=== PATIENT | female | born 1975 | race Caucasian/White ===

== ENCOUNTER → 2017-04-11 | Outpatient (CLI) | payer BC | LOC: MC.RAD 08:00 | DX: Z12.31 Encounter for screening mammogram for malignant neoplasm of breast (principal) ==

== ENCOUNTER 2018-05-15 05:52 | Day surgery (SDC) | payer BC ==
[~2018-05-15] VITALS: Ht 160 cm; Wt 95.7 kg
[2018-05-15 06:18] VITALS: BP 119/78; PULSE 76; TEMP 98.3
[2018-05-15] MEDS ORDERED: ZOLOFT 50MG50 MG PO (06:36)
[2018-05-15 07:35] VITALS: BP 116/77; PULSE 66; TEMP 97.9
--- NOTE | 2018-05-15 07:35 | NUR ---
Pt returns from endo procedure via cart. Pt ambulates from cart to recliner with RN assist. Monitors on and alarms set. Call light within reach. Pt alert and oriented. Report received from SB Crisostomo. Pt requesting muffin and juice. No complaints of pain or nausea voiced by patient. remains in room.
[2018-05-15 07:45] VITALS: BP 111/74; PULSE 69
[2018-05-15 08:00] VITALS: BP 113/75; PULSE 66
--- NOTE | 2018-05-15 08:00 | NUR ---
Pt taking food and drink well. No complaints voiced.
--- NOTE | 2018-05-15 08:08 | NUR ---
Discharge instructions given to patient and . Handed to them are discharge instructions, diagnosis information, and a discharge med sheet. All questions answered to their satisfaction.
[2018-05-15 08:15] VITALS: BP 116/63; PULSE 68
--- NOTE | 2018-05-15 08:20 | NUR ---
Pt transferred out of hospital via wheelchair and Roxie assist to private vehicle driven by .
== END 2018-05-15 08:20 | disposition home or self-care (01) ==
LOC: SDCO 05:52
DX: Z12.11 Encounter for screening for malignant neoplasm of colon (principal); Z83.71 Family history of colonic polyps; D12.0 Benign neoplasm of cecum; D12.2 Benign neoplasm of ascending colon; K63.5 Polyp of colon; F32.9 Major depressive disorder, single episode, unspecified
CPT/HCPCS: J2704; J3010; J7030

== ENCOUNTER → 2019-05-20 | Outpatient (CLI) | payer BC ==
[~2019-05-20] MED LIST: ZOLOFT 50MG50 MG PO
== END ==
LOC: MC.RAD 15:39
DX: Z12.31 Encounter for screening mammogram for malignant neoplasm of breast (principal); N63.20 Unspecified lump in the left breast, unspecified quadrant

== ENCOUNTER → 2019-05-27 | Outpatient (CLI) | payer BC | LOC: MC.RAD 14:00 | DX: N60.02 Solitary cyst of left breast (principal) ==

== ENCOUNTER → 2021-11-23 | Outpatient (CLI) | payer BC | LOC: MC.RAD 06:57 | DX: Z12.31 Encounter for screening mammogram for malignant neoplasm of breast (principal) ==

== ENCOUNTER → 2023-04-24 | Outpatient (CLI) | payer BC ==
[~2023-04-24] MED LIST changes: +LEXAPRO 10MG10 MG PO
== END ==
LOC: MC.RAD 10:02
DX: Z12.31 Encounter for screening mammogram for malignant neoplasm of breast (principal)